=== PATIENT | female | born 1965 | race Caucasian/White ===

== ENCOUNTER → 2016-09-14 | Outpatient (CLI) | payer OTHER ==
--- NOTE | 2016-09-16 10:04 | MM ---
Reason for exam: follow-up at short interval from prior study. Last mammogram was performed 6 months ago. History: Family history of breast cancer in maternal cousin at age 51. Cyst aspiration of the right breast, 1985. Excisional biopsy of the right breast. Took hormonal contraceptives for 5 years. Physical Findings: Nurse Summary: 0.5 x 1cm nodule in the right breast at 12 o'clock (nurse ts). MG Diagnostic Mammo RT w CAD CC and MLO view(s) were taken of the right breast. Prior study comparison: March 05, 2016, right breast MG 3d work up w/cad RT. March 03, 2016, bilateral MG 3d screening mammo w/cad. March 01, 2015, bilateral MG 3d diag mammo w/cad TANIA. August 25, 2010, CAD bilateral diagnostic mammogram. The breast tissue is heterogeneously dense. This may lower the sensitivity of mammography. Palpable marker upper outer quadrant. No significant new findings when compared with previous films. These results were verbally communicated with the patient and result sheet given to the patient on 09/14/16. ASSESSMENT: Incomplete: need additional imaging evaluation, BI-RAD 0 RECOMMENDATION: Ultrasound of both breasts.
--- NOTE | 2016-09-16 10:12 | USB ---
Reason for exam: additional evaluation requested from abnormal screening. History: Family history of breast cancer in maternal cousin at age 51. Cyst aspiration of the right breast, 1985. Excisional biopsy of the right breast. Took hormonal contraceptives for 5 years. US Breast BILAT Left breast ultrasound includes all four quadrants, the retroareolar region and axilla. Finding demonstrates a 1.1 x 1.0 x 0.6cm oval, cystic lesion, larger of 2, at 12 o'clock, a 0.6 x 1.0 x 0.3cm oval, hypoechoic lesion at 1o'clock versus 6 x 7 x 3mm previously, likely mildly complicated cyst and a 0.6 x 0.5 x 0.3cm oval, cystic lesion at 10 o'clock versus 6 x 4 x 3mm, benign. Right breast ultrasound includes all four quadrants, the retroareolar region and axilla. Finding demonstrates a 0.7 x 0.8 x 0.5cm oval, hypoechoic lesion at 12 o'clock versus 5 x 6 x 4mm previously for which a 6 month follow up is recommended, a 0.7 x 0.5 x 0.4cm oval, hypoechoic lesion at 1 o'clock versus 5 x 4 x 2mm previously for which a 6 month follow up is recommended, a duct at 7 o'clock, a 0.3 x 0.2 x 0.2cm oval lesion too small to characterize at 9 o'clock, a 0.3 x 0.5 x 0.3 oval, hypoechoic lesion at 9 o'clock versus 3 x 5 x 6mm previously and a 0.7 x 0.7 x 0.6cm oval, cystic lesion at 11:30 BB, palpable, benign, suggesting benign complicated cyst. These results were verbally communicated with the patient and result sheet given to the patient on 09/14/16. ASSESSMENT: Probably benign, BI-RAD 3 RECOMMENDATION: Follow-up diagnostic mammogram of both breasts in 6 months. Back on schedule for February 2017. Ultrasound of the right breast in 6 months. (attention 12 o'clock and 1 o'clock) Manage on a clinical basis with regard to any suspicious palpable areas.
== END | disposition home or self-care (01) ==
LOC: RADMAMWWP 07:28
PROVIDERS: ATTEND Family Medicine
DX: R92.8 Other abnormal and inconclusive findings on diagnostic imaging of breast (principal)
CPT/HCPCS: 76641; G0206

== ENCOUNTER → 2018-06-20 | Outpatient (CLI) | payer OTHER ==
[2018-06-20 11:44] LABS: Basophils # (A) 0.1 k/uL (0-0.2); Basophils % (A) 1 %; Eosinophils # (A) 0.2 k/uL (0-0.7); Eosinophils % (A) 2 %; HGB 13.9 gm/dL (11.4-16.0); Lymphocytes # (A) 1.7 k/uL (1.0-4.8); Lymphocytes % (A) 14 %; MCHC 31.7 g/dL (31.0-37.0); MCV 91.6 fL (80.0-100.0); Mean Platelet Volume 8.1; Monocytes # (A) 0.5 k/uL (0-1.0); Monocytes % (A) 4 %; Neutrophils % (A) 79 %; Platelet Count 291 k/uL (150-450); RBC 4.81 m/uL (3.80-5.40); RDW 13.6 % (11.5-15.5); WBC 12.6 k/uL (3.8-10.6)
[2018-06-20 16:52] LABS: T4, Free (Free Thyroxine) 1.1 ng/dL (0.80-1.80)
[2018-06-20 17:36] LABS: Albumin 5.1 g/dL (3.80-4.90); Albumin/Globulin Ratio 2.32 (1.60-3.17); Anion Gap 10.4 mmol/L (4.00-12.00); Calcium 10.2 mg/dL (8.7-10.3); Carbon Dioxide 25.6 mmol/L (21.6-31.8); Globulin 2.2 g/dL (1.6-3.3); Potassium 4.2 mmol/L (3.5-5.5); Total Bilirubin 0.7 mg/dL (0.3-1.2); Total Protein 7.3 g/dL (6.2-8.2)
== END | disposition home or self-care (01) ==
LOC: LABWHC1 10:27
PROVIDERS: ATTEND Family Medicine
DX: E55.9 Vitamin D deficiency, unspecified (principal); E78.5 Hyperlipidemia, unspecified; R53.83 Other fatigue; Z13.220 Encounter for screening for lipoid disorders
CPT/HCPCS: 36415; 80053; 80061; 82306; 84439; 84443; 85025

== ENCOUNTER → 2019-03-03 | Outpatient (CLI) | payer OTHER ==
--- NOTE | 2019-03-03 13:46 | MM ---
Reason for exam: additional evaluation requested from prior study. Last mammogram was performed 2 years and 6 months ago. History: Family history of breast cancer in maternal cousin at age 51. Cyst aspiration of the right breast, 1985. Excisional biopsy of the right breast. Took hormonal contraceptives for 5 years. Physical Findings: Nurse did not find any significant physical abnormalities on exam. MG Diagnostic Mammo w CAD TANIA Bilateral CC and MLO view(s) were taken. Prior study comparison: September 14, 2016, right breast MG diagnostic mammo RT w CAD. March 05, 2016, right breast MG 3d work up w/cad RT. The breast tissue is extremely dense which could obscure a lesion on mammography. No significant new findings when compared with previous films. These results were verbally communicated with the patient and result sheet given to the patient on 03/03/19. ASSESSMENT: Benign, BI-RAD 2 RECOMMENDATION: Routine screening mammogram of both breasts in 1 year.
== END | disposition home or self-care (01) ==
LOC: RADMAMWWP 10:26
PROVIDERS: ATTEND Family Medicine
DX: R92.8 Other abnormal and inconclusive findings on diagnostic imaging of breast (principal)
CPT/HCPCS: 77066

== ENCOUNTER → 2019-08-28 | Outpatient (CLI) | payer OTHER ==
[2019-08-28 08:46] LABS: HCT 45.6 % (34.0-46.0); HGB 14.7 gm/dL (11.4-16.0); MCH 30.1 pg (25.0-35.0); MCHC 32.2 g/dL (31.0-37.0); MCV 93.6 fL (80.0-100.0); Mean Platelet Volume 8.6; Platelet Count 277 k/uL (150-450); RBC 4.87 m/uL (3.80-5.40); RDW 13.1 % (11.5-15.5); WBC 7.9 k/uL (3.8-10.6)
[2019-08-28 08:51] LABS: Appearance,Urine Clear (Clear); Bacteria,Urine Few /hpf; Bilirubin,Urine Negative (Negative); Blood,Urine Small (Negative); Color,Urine Light Yellow; Glucose,Urine (UA) Negative (Negative); Ketones,Urine Negative (Negative); Leukocyte Esterase,Urine Negative (Negative); Mucus,Urine Rare /hpf; Nitrite,Urine Negative (Negative); Protein,Urine Negative (Negative); RBC,Urine 2 /hpf (0-5); Specific Gravity,Urine 1.007 (1.001-1.035); Squamous Epithelial Cell,Urine 3 /hpf (0-4); Urobilinogen,Urine <2.0 mg/dL (<2.0); WBC,Urine <1 /hpf (0-5)
[2019-08-28 08:57] LABS: INR 0.9 (<1.2); Partial Thromboplastin Time 25.2 sec (22.0-30.0); Prothrombin Time 9.6 sec (9.0-12.0)
[2019-08-28 09:11] LABS: ALT 16 U/L (4-34); AST 23 U/L (14-36); African American GFR (CKD) >90 (>60 ml/min/1.73 sqM); Albumin 4.7 g/dL (3.5-5.0); Alkaline Phosphatase 108 U/L (38-126); Anion Gap 6 mmol/L; Blood Urea Nitrogen 11 mg/dL (7-17); Calcium 9.8 mg/dL (8.4-10.2); Carbon Dioxide 29 mmol/L (22-30); Chloride 102 mmol/L (98-107); Glucose 90 mg/dL (74-99); Non-African American GFR(CKD) >90 (>60 ml/min/1.73 sqM); Potassium 4.7 mmol/L (3.5-5.1); Sodium 137 mmol/L (137-145); Total Bilirubin 0.4 mg/dL (0.2-1.3); Total Protein 7.8 g/dL (6.3-8.2)
== END | disposition home or self-care (01) ==
LOC: LABPAT 07:50
PROVIDERS: ATTEND Orthopaedic Surgery
DX: Z01.818 Encounter for other preprocedural examination (principal); Z01.812 Encounter for preprocedural laboratory examination
CPT/HCPCS: 36415; 80053; 81001; 85027; 85610; 85730; 87070; 93005

== ENCOUNTER 2019-09-07 07:22 | Day surgery (SDC) | payer OTHER ==
[2019-09-05 14:43] VITALS: BMI 23.0
[~2019-09-07 07:22] MED LIST: ACETAMINOPHEN TAB 500 MG TAB PO ONE; DEXAMETHASONE SOD PHOSPHATE 10 MG/ML 1 ML VIAL IV ONE; GABAPENTIN 300 MG CAP PO ONE; HYDROmorphone 0.5 MG/0.5 ML SYRINGE IVP PRN; MELOXICAM 7.5 MG TAB PO ONE; ONDANSETRON 4 MG/2 ML VIAL IVP ONE; TRANEXAMIC ACID 1,000 MG in SODIUM CHLORIDE 0.9% 100 ML IVPB ONE
[2019-09-07] MEDS ORDERED: ONDANSETRON 4 MG/2 ML VIAL ONE (07:38)
[2019-09-07] MEDS ORDERED: ACETAMINOPHEN TAB 500 MG TAB ONE (07:39)
[2019-09-07] MEDS: LACTATED RINGERS 1,000 ML IV SCH (07:57)
[2019-09-07] MEDS ORDERED: LIDOCAINE 1% (10MG/ML) FOR IV START INTRADERMA ONE (07:57)
[2019-09-07] MEDS ORDERED: HYDROmorphone 0.5 MG/0.5 ML SYRINGE IVP PRN ×2 (09:04)
[2019-09-07] MEDS ORDERED: ONDANSETRON 4 MG/2 ML VIAL IVP PRN (09:04)
[2019-09-07] MEDS ORDERED: MAGNESIUM HYDROXIDE 2,400 MG/10 ML CUP PO PRN (09:04)
[2019-09-07] MEDS ORDERED: HYDROmorphone 1 MG/ML 1 ML SYRINGE IVP PRN (09:04)
[2019-09-07] MEDS ORDERED: NALOXONE 0.4 MG/ML 1 ML VIAL IV PRN (09:04)
[2019-09-07] MEDS ORDERED: DIAZEPAM 5 MG TAB PO PRN (09:04)
[2019-09-07] MEDS ORDERED: hydrOXYzine PAMOATE 25 MG CAP PO PRN (09:04)
[2019-09-07] MEDS ORDERED: HYDROcodone/APAP 5-325MG 1 EACH TAB PO PRN ×2 (09:04)
[2019-09-07] MEDS ORDERED: HEPARIN SODIUM,PORCINE 10,000 UNIT/ML 1 ML VIAL ONE (09:11)
[2019-09-07] MEDS ORDERED: SODIUM CHLORIDE 0.9% IRRIG 1,000 ML BTL IRRIGATION ONE (09:11)
[2019-09-07] MEDS ORDERED: fentaNYL (PF) 50 MCG/ML 2 ML AMP ONE (09:12)
[2019-09-07] MEDS ORDERED: MIDAZOLAM 2 MG/2 ML VIAL ONE (09:12)
[2019-09-07] MEDS ORDERED: LIDOCAINE 1% INJ 10MG/ML (20 ML MDV) ONE (09:12)
[2019-09-07] MEDS ORDERED: TRANEXAMIC ACID 1,000 MG/10 ML VIAL ONE (09:12)
[2019-09-07] MEDS ORDERED: SODIUM CHLORIDE 0.9% 100 ML BAG ONE (09:12)
[2019-09-07] MEDS ORDERED: PROPOFOL 10 MG/ML 20 ML VIAL IV ONE (09:12)
[2019-09-07] MEDS ORDERED: ceFAZolin 3,000 MG in SODIUM CHLORIDE 0.9% IRRIGATIO 3,000 ML IRRIGATION ONE (09:17)
[2019-09-07] MEDS: ROPIVACAINE 246.25 MG, EPINEPHrine 0.5 MG, KETOROLAC 30 MG, cloNIDine HCL/PF 80 MCG, WA... MISCELLANE ONE ×10 (09:56→10:37)
--- NOTE | 2019-09-07 11:03 | P.OP ---
Date of Procedure: 09/07/19 Preoperative Diagnosis: Severe osteoarthritis secondary to hip dysplasia right hip Postoperative Diagnosis: Severe osteoarthritis secondary to hip dysplasia of the right hip Procedure(s) Performed: Right total hip arthroplasty with a direct anterior approach Implants: Small and nephew Polarstem size 0 standard Small & Nephew R3, 3 hole acetabular shell, 48 mm Small & Nephew reflection 6.5 mm cancellus screw, 20 mm 2, 15 mm Small & Nephew R3, XLPE 20 acetabular liner Small & Nephew Oxinium femoral head 32 m, +8 All components were press-fit. The articulation is Oxinium on polyethylene. Anesthesia: spinal Surgeon: Ricardo Davis Cardiology Consultant #1: Adelaida Moss Pathology: other (Femoral head) Condition: stable Disposition: PACU Indications for Procedure: After failure of conservative treatment we discussed the surgical and nonsurgica l treatment options at length. Patient wishes to proceed with a total hip arthroplasty with a direct anterior approach. Complications specific to this procedure were discussed at length, including but not limited to infection, leg length discrepancy, dislocation, and nerve injury. Covid-19 was also discussed at length with the patient, and they are aware of the current policies and procedures. The patient was given the option of delaying surgery, but they elect to proceed knowing these risks. Patient is aware of all these complications and informed consent was obtained Operative Findings: The operative findings are consistent with severe osteoarthritis the right hip secondary to hip dysplasia Description of Procedure: Patient was seen and evaluated in the preoperative area, consent was reviewed, and the surgical site was marked with a skin marker. Patient was then brought to the operating room and given prophylactic antibiotics intravenously. 1 g of Tranexamic acid was also given. A spinal anesthetic was administered by the anesthesia department. The patient was then placed on the Carver table with the bony prominences well-padded. The hip area was then prepped and draped in usual sterile fashion. A universal timeout was then performed, which confirmed the patient's name, surgical site, ALLERGIES, and procedure being performed. Next the incision site was located at 1 cm distal and 1 cm lateral to the anterior superior iliac spine. The skin and subcutaneous tissues were sharply incised. Incision was carefully dissected down to the fascia overlying the tensor fascia thalia muscle. This fascia was then incised in line with the incision. Next, using blunt finger dissection, the tensor fascia thalia muscle was dissected off its investing fascia. The muscle was then carefully retracted laterally with a cobra retractor over the lateral neck of the femur. Next, the circumflex vessels were identified and cauterized using the AquaMantis device. The anterior hip capsule was then exposed. The capsule was then opened and an inverted T fashion. Cobra retractors were then placed intracapsularly. The proximal femur was then visualized. The femoral neck was then osteotomized appropriate level above the lesser trochanter. Small amount of traction was placed with the Carver table. A small wedge of bone was then removed from the remaining femoral head. Next, using a corkscrew femoral head was easily removed from the acetabulum. On gross visual inspection, the femoral head had complete loss of articular cartilage in multiple periarticular osteophytes. Attention was then turned to the acetabulum. the acetabulum was exposed and any remaining labrum was excised. Sequential reaming of the acetabulum was performed using fluoroscopic guidance. When the appropriate size was reached, a trial was then placed. The position and fit of the trial was checked with fluoroscopy. The trial was then removed. Then, using fluoroscopic guidance, the final implant was impacted at 20 of anteversion and 40 of abduction, and fully seated in the acetabulum. 3 screws were then placed in the acetabulum. Again fluoroscopy was used to check position of the screws. Next, the liner was then impacted, with a 20 elevated liner located in the anterior superior quadrant. Component locking was confirmed. Attention was then directed to the femur. With the aid of the Carver table, the femur was externally rotated to approximately 130, extended, and abducted under the opposite leg. A side hook was then placed under the proximal femur, and the side hook elevator was used to elevate the proximal femur. Retractors were then placed. A capsular release was performed, as well as a release of the conjoined tendon, which afforded excellent visualization of the proximal femur. Next, a box osteotome was used to lateralize the proximal femur. A merchandising representative was then used to locate the femoral canal. Sequential broaching was then performed with appropriate size which afforded excellent fixation in the proximal femur. A trial was then placed with appropriate head and neck, and the hip was gently re duced with the aid of the Carver table. Fluoroscopy was then used to check position of the components, as well as to ensure equal leg lengths. The hip was then gently dislocated and the trials were then removed. Final implants were then impacted and the hip was again reduced. Final fluoroscopic x-rays confirmed that the components were in anatomic position, as well as equal leg lengths. The hip was also taken through range of motion, and found to be stable. The hip was then copiously irrigated with antibiotic solution with pulsatile lavage. The hip was then irrigated with Irrisept solution. The soft tissues were then injected with a ropivacaine solution, which consisted of 246.25 mg of ropivacaine, 0.5 mg of epinephrine, 30 mg of Toradol, 80 g of clonidine, and 48.45 mL of sterile water, for a total of 100 mL of fluid injected. A second dose of 1 g of Tranexamic acid was also given. the fascia was then closed with 2-0 strata fix suture. The subcutaneous tissue was closed with 3-0 Vicryl. The subcuticular tissue was closed with 3-0 strata fix suture. The skin was then closed with Dermabond glue and a sterile silver dressing. The patient was then transferred to the recovery room in stable condition. The minister assistant LESIA Horn was required due to the complexity of surgery, and the need for skilled branch assistant for positioning, draping, exposure, retraction, and closure of the wound.
--- NOTE | 2019-09-07 11:11 | XR ---
Fluoroscopy INDICATION: Pain FINDINGS: Fluoroscopy time: 39 seconds. Images obtained: 2. IMPRESSIONS: 1. Documentation of fluoroscopy.
--- NOTE | 2019-09-07 11:49 | XR ---
EXAMINATION TYPE: XR Hip Limited RT DATE OF EXAM: 09/07/2019 COMPARISON: 02/23/2014 pelvis HISTORY: Right hip surgery TECHNIQUE: Single view right hip FINDINGS: Right hip prosthesis has been placed. Acetabular component is present. No acute fractures a re evident. Postsurgical changes are within the soft tissues. IMPRESSION: 1. No acute fractures post right hip replacement.
[2019-09-07] MEDS: SODIUM CHLORIDE 0.9% 1,000 ML IV SCH ×2 (14:53→17:22)
[2019-09-07] MEDS ORDERED: SENNOSIDES-DOCUSATE SODIUM 1 EACH TAB PO SCH (21:00)
[2019-09-07] MEDS: ASPIRIN 325 MG TAB PO SCH (21:36)
[2019-09-08] MEDS: LACTATED RINGERS 1,000 ML IV SCH (07:07)
[2019-09-08] MEDS ORDERED: Acetaminophen-Codeine 300-30mg TAB PO PRN ×2 (08:20)
[2019-09-08] MEDS: ASPIRIN 325 MG TAB PO SCH (08:34)
[2019-09-08 08:42] VITALS: BP 118/71; PULSE 80; RESP 17; TEMP 98.3
--- NOTE | 2019-09-08 08:57 | P.DS ---
Providers Expected date of discharge: 09/08/19 Attending physician: Ricardo Davis Consults: 09/07/19 09:04 Consult Physician Routine Consulting Provider: Chintan Clayton Consult Reason/Comments: medical management Do you want consulting provider notified?: Yes Primary care physician: Chintan Clayton - Discharge Diagnosis(es) (1) Osteoarthritis of right hip Current Visit: Yes Status: Acute (2) Status post total hip replacement, right Current Visit: Yes Status: Acute Hospital Course: This is a 53-year-old female with known history of degenerative arthritis of the right hip. The patient presents for evaluation. After discussion and consider ation patient elects to proceed with total hip arthroplasty. The patient is seen preoperatively by Dr. Davis and medically cleared for surgery by their primary care physician. Patient is admitted to [facility] on 09/07/2019 for total hip arthroplasty. The procedures performed without complication or sequelae. The patient is doing well postoperatively. Labs and vital signs are stable on day of discharge. On day of discharge patient's hip incision is healing well. There is minimal erythema. There is no drainage noted at this time. There is minimal soft tissue swelling to the hip and thigh. Patient has full foot and ankle motion without difficulty or pain. Calf is soft and nontender to palpation. Neurovascular status to the right lower extremity is intact. Patient is discharged home in good condition. Opioid start talking form is reviewed and signed at patient bedside. Please see med rec for accurate list of home medications. Plan - Discharge Summary Discharge Rx Participant: No New Discharge Prescriptions: New Aspirin 325 mg PO BID #60 tab Sennosides [Senokot] 2 tab PO DAILY PRN #60 tablet PRN Reason: Constipation Acetaminophen-Codeine 300-30mg [Tylenol #3] 1 - 2 tab PO Q6H PRN #56 tablet PRN Reason: Pain No Action Cyclobenzaprine [Flexeril] 10 mg PO HS Ibuprofen [Motrin] 800 mg PO Q8H PRN PRN Reason: Pain Ergocalciferol [Vitamin D2] 50,000 unit PO Q30D Discharge Medication List Cyclobenzaprine [Flexeril] 10 mg PO HS 09/05/19 [History] Ergocalciferol [Vitamin D2] 50,000 unit PO Q30D 09/05/19 [History] Ibuprofen [Motrin] 800 mg PO Q8H PRN 09/05/19 [History] Acetaminophen-Codeine 300-30mg [Tylenol #3] 1 - 2 tab PO Q6H PRN #56 tablet 09/08/19 [Rx] Aspirin 325 mg PO BID #60 tab 09/08/19 [Rx] Sennosides [Senokot] 2 tab PO DAILY PRN #60 tablet 09/08/19 [Rx] Follow up Appointment(s)/Referral(s): Ricardo Davis DO [Doctor of Osteopathic Medicine] - 2 Weeks Activity/Diet/Wound Care/Special Instructions: Weightbearing as tolerated with walker. Leave dressing intact. Dressing may be removed by home care nurse or by patient in 10 days. May shower with dressing on. Recommend use of compression stockings daily until follow up to help prevent swelling and blood clots. May remove at night before sleeping. Please follow-up with [facility] in 2 weeks and call with any questions or concerns, . Discharge Disposition: HOME WITH HOME HEALTH SERVICES
[2019-09-08] MEDS ORDERED: MELOXICAM 7.5 MG TAB PO SCH (09:00)
[2019-09-08 11:17] LABS: Basophils % (A) 0 %; Eosinophils % (A) 0 %; HCT 35.2 % (34.0-46.0); Lymphocytes # (A) 2.1 k/uL (1.0-4.8); Lymphocytes % (A) 13 %; MCH 29.5 pg (25.0-35.0); MCHC 31.8 g/dL (31.0-37.0); MCV 92.9 fL (80.0-100.0); Mean Platelet Volume 9.3; Monocytes # (A) 0.9 k/uL (0-1.0); Monocytes % (A) 6 %; Neutrophils # (A) 13.2 k/uL (1.3-7.7); Neutrophils % (A) 80 %; Platelet Count 254 k/uL (150-450); RBC 3.79 m/uL (3.80-5.40); RDW 13.1 % (11.5-15.5); WBC 16.5 k/uL (3.8-10.6)
[2019-09-08 11:40] LABS: HGB 11.2 gm/dL (11.4-16.0)
--- NOTE | 2019-09-08 12:41 | PN ---
PROGRESS NOTE DATE OF SERVICE: 09/08/2019 CHIEF COMPLAINT: Status post right MARC. HISTORY OF PRESENT ILLNESS: This is doing well. She has had no fever, chills, abdominal pain, shortness of breath, etc. She had nausea during the night due to her analgesics. She feels fine now. She will probably go home. PHYSICAL EXAMINATION: Vital signs are normal. She is afebrile. Chest is clear. Cardiac exam is normal. Abdomen is soft. IMPRESSION: 1. Status post right MARC. 2. Rheumatoid arthritis. PLAN: Probably home today and we will follow her up from the office. MMODL / IJN: [id number] /
--- NOTE | 2019-09-08 17:34 | CONS ---
CONSULTATION CHIEF COMPLAINT: Osteoarthritis of the right hip and rheumatoid arthritis. HISTORY OF PRESENT ILLNESS: This is the first admission in some time for this 53-year-old white female who has had severe rheumatoid arthritis with multiple deformities which has "burned out" several years ago. She has been putting up with severe right hip pain due to osteoarthritis and is in for an elective replacement. REVIEW OF SYSTEMS: She has had no headaches, change in vision or hearing, neurologic deficits, TIAs, CVAs, shortness of breath, cough, hemoptysis, pleurisy, hypertension, heart disease, murmurs, rheumatic fever, palpitations, syncope, orthopnea, PND, etc. She has had no significant abdominal problems, including ulcer disease, nausea, vomiting, hematemesis, melena, hematochezia, jaundice, hepatitis, cirrhosis, renal failure, hematuria, dysuria, frequency, urgency, incontinence, diabetes, etc. Past medical history, family history, and personal and social histories reveal that her only allergy was problems with cold shots. Medications currently include Flexeril 10 mg at bedtime p.r.n., vitamin D 50,000 units a month, Motrin 800 mg q.i.d. p.r.n. The remainder of her history is otherwise unremarkable. She used to smoke but has quit. She does not abuse alcohol. PHYSICAL EXAMINATION: Blood pressure is 112/70, pulse is 67 and regular, respirations 16, and she is afebrile. In general she appeared to be well developed, well nourished, in no acute distress. Skin color is normal. Skin is warm and dry. Lymph nodes are not enlarged. Head, ears, eyes, nose, mouth and throat were normal. Neck veins were not distended. Thyroid was not enlarged. Chest is clear. Cardiac exam is normal. No murmurs or extra sounds are heard. There are no rubs. The abdomen is soft, nontender without visceromegaly or masses. Bowel sounds are present. Extremities are normal except for deformities of the upper and lower extremities due to her rheumatoid disease. Neurologically she is intact. She is admitted to the hospital with the diagnoses: 1. Osteoarthritis of right hip. 2. Rheumatoid arthritis. RECOMMENDATIONS: None. She is a good surgical candidate at low risk. Thank you respectfully. MMODL / IJN: [id number] /
== END 2019-09-08 09:48 | disposition home health service (06) ==
LOC: OR 07:22 → EDSTATUS 08:45 → 4SSUR 11:09 → OR 09-08 09:48
PROVIDERS: ATTEND Orthopaedic Surgery
DX: M16.31 Unilateral osteoarthritis resulting from hip dysplasia, right hip (principal); M06.9 Rheumatoid arthritis, unspecified; Q65.89 Other specified congenital deformities of hip; E78.5 Hyperlipidemia, unspecified; Z87.891 Personal history of nicotine dependence; Z79.1 Long term (current) use of non-steroidal anti-inflammatories (NSAID); Z79.899 Other long term (current) drug therapy; Z96.642 Presence of left artificial hip joint; Z97.3 Presence of spectacles and contact lenses
CPT/HCPCS: 97116; 97161; 97165; 86891; 86900; 86901; 85025; 86850; 88300; 73501 ×2; 27130; C1776; J2250; J0171; J1644; J1100; J0690 ×3; J2405; J2001; J3010; J1885; J1170; J2795; J2704; J0735

== ENCOUNTER → 2020-05-07 | Outpatient (CLI) | payer OTHER ==
--- NOTE | 2020-05-09 14:25 | MM ---
Reason for exam: screening (asymptomatic). Last mammogram was performed 1 year and 2 months ago. History: Patient is postmenopausal. Family history of breast cancer in maternal cousin at age 51. Cyst aspiration of the right breast, 1985. Excisional biopsy of the right breast. Took hormonal contraceptives for 5 years. Physical Findings: A clinical breast exam by your physician is recommended on an annual basis and results should be correlated with mammographic findings. MG Screening Mammo w CAD Bilateral CC and MLO view(s) were taken. Prior study comparison: March 03, 2019, bilateral MG diagnostic mammo w CAD TANIA. September 14, 2016, right breast MG diagnostic mammo RT w CAD. The breast tissue is heterogeneously dense. This may lower the sensitivity of mammography. No significant changes when compared with prior studies. ASSESSMENT: Negative, BI-RAD 1 RECOMMENDATION: Routine screening mammogram of both breasts in 1 year. Patient should continue monthly self breast exams. A negative report should not preclude additional follow up of suspicious palpable abnormalities.
== END | disposition home or self-care (01) ==
LOC: RADMAMWWP 13:15
PROVIDERS: ATTEND Family Medicine
DX: Z12.31 Encounter for screening mammogram for malignant neoplasm of breast (principal)
CPT/HCPCS: 77067

== ENCOUNTER → 2021-01-21 | Outpatient (CLI) | payer OTHER ==
[2021-01-21 19:24] LABS: Basophils # (A) 0.07 X 10*3/uL (0.00-0.10); Basophils % (A) 0.6 %; Eosinophils # (A) 0.06 X 10*3/uL (0.04-0.35); Eosinophils % (A) 0.5 %; HCT 42.3 % (37.2-46.3); HGB 13.8 g/dL (12.0-15.0); Lymphocytes # (A) 2.06 X 10*3/uL (0.90-5.00); Lymphocytes % (A) 18.4 %; MCH 30.9 pg (27.0-32.0); MCHC 32.6 g/dL (32.0-37.0); MCV 94.6 fL (80.0-97.0); Mean Platelet Volume 11.9 fL (9.5-12.2); Monocytes % (A) 4.5 %; Neutrophils # (A) 8.49 X 10*3/uL (1.80-7.70); Neutrophils % (A) 75.6 %; Platelet Count 303 X 10*3/uL (140-440); RBC 4.47 X 10*6/uL (4.10-5.20); RDW 13.6 % (11.5-14.5); WBC 11.22 X 10*3/uL (4.50-10.00)
[2021-01-21 21:02] LABS: African American GFR (CKD) 118.9 (60.0-200.0); Anion Gap 16.2 mmol/L (4.00-12.00); BUN/Creat Ratio 16.17 Ratio (12.00-20.00); Blood Urea Nitrogen 9.7 mg/dL (9.0-27.0); Calcium 10.3 mg/dL (8.7-10.3); Carbon Dioxide 21.8 mmol/L (21.6-31.8); Chol/HDL Ratio 3.61 Ratio; Globulin 2.5 g/dL (1.6-3.3); HDL Cholesterol 69.5 mg/dL (40.00-60.00); LDL Cholesterol,Calculated 158.7 mg/dL (0.0-131.0); Non-African American GFR(CKD) 102.6 (60.0-200.0); T4, Free (Free Thyroxine) 1.43 ng/dL (0.800-1.800); Total Bilirubin 0.4 mg/dL (0.30-1.20); Total Protein 7.5 g/dL (6.2-8.2); VLDL Calculation 22.8 mg/dL (5.00-40.00)
== END | disposition home or self-care (01) ==
LOC: LABWHC1 13:20
PROVIDERS: ATTEND Family Medicine
DX: Z00.00 Encounter for general adult medical examination without abnormal findings (principal); Z13.220 Encounter for screening for lipoid disorders; E55.9 Vitamin D deficiency, unspecified; E78.5 Hyperlipidemia, unspecified; R53.83 Other fatigue
CPT/HCPCS: 36415; 80053; 80061; 82306; 84439; 84443; 85025

== ENCOUNTER 2022-04-07 14:49 | Observation (INO) | payer BC ==
[2022-04-07] MEDS ORDERED: MECLIZINE 12.5 MG TAB PO STA (15:21)
[2022-04-07] MEDS ORDERED: METOCLOPRAMIDE 5 MG/ML 2 ML VIAL IVP STA (15:21)
[2022-04-07] MEDS ORDERED: SODIUM CHLORIDE 0.9% 1,000 ML IV STA (15:21)
--- NOTE | 2022-04-07 15:26 | ED ---
General Adult HPI - General Chief complaint: Dizziness Stated complaint: vomiting Time Seen by Provider: 04/07/22 15:14 Source: patient, RN notes reviewed Mode of arrival: ambulatory Limitations: no limitations - History of Present Illness Initial comments: Patient is a pleasant 56-year-old female presenting to the emergency department with concerns with vertigo symptoms. Onset of symptoms was around 4 AM. Symptoms have been constant since that time. Patient feels like the room was spinning. Patient states symptoms worsen with upright position and head movement. Patient also has developed some mild pressure in her chest that remains stable and remains mild. No history of similar symptoms previously. No dyspnea. Patient does have nausea and vomiting that she attributes to the dizziness. No sweating. - Related Data Home Medications Medication Instructions Recorded Confirmed Ibuprofen [Motrin] 800 mg PO Q8H PRN 09/05/19 04/07/22 Allergies Allergy/AdvReac Type Severity Reaction Status Date / Time No Known Allergies Allergy Verified 04/07/22 16:05 Review of Systems ROS Statement: Those systems with pertinent positive or pertinent negative responses have been documented in the HPI. ROS Other: All systems not noted in ROS Statement are negative. Constitutional: Denies: fever Eyes: Denies: eye pain ENT: Denies: ear pain Respiratory: Denies: cough Cardiovascular: Reports: as per HPI, chest pain Endocrine: Denies: fatigue Gastrointestinal: Reports: nausea, vomiting. Denies: abdominal pain Genitourinary: Denies: urgency Musculoskeletal: Denies: back pain Neurological: Reports: vertigo. Denies: headache, weakness Past Medical History Past Medical History: Rheumatoid Arthritis (RA) Additional Past Medical History / Comment(s): 01/11/15 PT admitted to floor s/p total L hip arthroplasty. Other HX: RA diagnosed as a child- hand affected, RECENT TESTING DEMONSTRATES NO RHEUMATOID OR OSTEOARTHRITIS, kidney infection. History of Any Multi-Drug Resistant Organisms: None Reported Past Surgical History: Breast Surgery, Joint Replacement, Tubal Ligation Additional Past Surgical History / Comment(s): 01/11/15 Total L hip arthroplasty-anterior approach. Other SX: RIGHT BREAST BX-NEG Additional Past Anesthesia/Blood Transfusion Reaction / Comment(s): HAS NEVER LLAMAS D GENERAL ANETHESIA. Past Psychological History: No Psychological Hx Reported Past Alcohol Use History: None Reported Past Drug Use History: None Reported - Past Family History Mother Family Medical History: No Reported History Additional Family Medical History / Comment(s): Mother is healthy and 69yrs old. Father History Unknown: Yes Additional Family Medical History / Comment(s): Pt does not know father. General Exam Limitations: no limitations General appearance: alert, in no apparent distress Head exam: Present: atraumatic, normocephalic Eye exam: Present: normal appearance, PERRL, EOMI ENT exam: Present: normal oropharynx Neck exam: Present: normal inspection Respiratory exam: Present: normal lung sounds bilaterally. Absent: chest wall tenderness Cardiovascular Exam: Present: regular rate, normal rhythm Expanded Peripheral pulses: 2+: Radial (R), Radial (L), Dorsalis Pedis (R), Dorsalis Pedis (L) GI/Abdominal exam: Present: soft. Absent: tenderness Extremities exam: Present: normal inspection. Absent: pedal edema, calf tenderness Neurological exam: Present: alert, oriented X3, CN II-XII intact. Absent: motor sensory deficit Expanded Neurological exam: Present: protecting the airway Speech: Present: fluid speech Cranial nerves: EOM's Intact: Normal Motor strength exam: RUE: 5, LUE: 5, RLE: 5, LLE: 5 Eye Response: (4) open spontaneously Motor Response: (6) obeys commands Verbal Response: (5) oriented Psychiatric exam: Present: normal affect, normal mood Skin exam: Present: normal color Course Vital Signs 04/07/22 04/07/22 14:57 18:09 Temperature 99 F Pulse Rate 86 96 Respiratory 16 18 Rate Blood Pressure 137/82 146/83 O2 Sat by Pulse 100 99 Oximetry EKG Findings - EKG Results: EKG: interpreted by ERMD (Anterior Q waves with nonspecific ST-T. Borderline inferior ST depression.), sinus rhythm, normal axis Medical Decision Making - Medical Decision Making Was pt. sent in by a medical professional or institution (, PA, PRODUCT GRADER, urgent care, hospital, or shelter...) When possible be specific @ -No Did you speak to anyone other than the patient for history (EMS, parent, family, police, friend...)? What history was obtained from this source @ -No Did you review nursing and triage notes (agree or disagree)? Why? @ -I reviewed and agree with nursing and triage notes Were old charts reviewed (outside hosp., previous admission, EMS record, old EKG, old radiological studies, urgent care reports/EKG's, shelter records)? Report findings @ -No old charts were reviewed Differential Diagnosis (chest pain, altered mental status, abdominal pain women, abdominal pain men, vaginal bleeding, weakness, fever, dyspnea, syncope, headache, dizziness, GI bleed, back pain, seizure, CVA, palpatations, mental health)? @ -Differential Chest Pain: Stable Angina, Unstable Angina, STEMI, NSTEMI Aortic Dissection, Pneumothorax, Musculoskeletal, Esophageal Spasm GERD, Cholecystitis, Pancreatitis, Zoster, this is not meant to be an all-inclusive list. Differential Weakness: Hypoglycemia, shock, sepsis, hyponatremia, anemia, infection, NV, ETOH, adverse medicine reaction, overdose, stroke, this is not meant to be an all-inclusive list. EKG interpreted by me (3pts min.). @ -As above X-rays interpreted by me (1pt min.). @ -Chest x-ray shows no acute process CT interpreted by me (1pt min.). @ -Reports reviewed U/S interpreted by me (1pt. min.). @ -None done What testing was considered but not performed or refused? (CT, X-rays, U/S, labs)? Why? @ -None What meds were considered but not given or refused? Why? @ -None Did you discuss the management of the patient with other professionals (professionals i.e. , PA, PRODUCT GRADER, lab, RT, psych nurse, pediatric social worker, transfill technician, teacher, tactical deception plans officer, telephonic nurse case manager)? Give summary @ -Case was discussed with Dr. fragoso, who will admit covering Dr. Paulson. Was smoking cessation discussed for >3mins.? @ -No Was critical care preformed (if so, how long)? @ -No Were there social determinants of health that impacted care today? How? (Homelessness, low income, unemployed, alcoholism, drug addiction, transportation, low edu. Level, literacy, decrease access to med. care, halfway, rehab)? @ -No Was there de-escalation of care discussed even if they declined (Discuss DNR or withdrawal of care, Hospice)? DNR status @ -No What co-morbidities impacted this encounter? (DM, HTN, Smoking, COPD, CAD, Cancer, CVA, ARF, Chemo, Hep., AIDS, mental health diagnosis, sleep apnea, morbid obesity)? @ -None Was patient admitted / discharged? Hospital course, mention meds given and ro jena, prescriptions, significant lab abnormalities, going to OR and other pertinent info. @ -Patient reevaluated. Symptoms have improved however not resolved. Patient got very dizzy with going to the bathroom. Patient and family updated on results and plan. Patient will be admitted. Admission orders written. Undiagnosed new problem with uncertain prognosis? @ -No Drug Therapy requiring intensive monitoring for toxicity (Heparin, Nitro, Insulin, Cardizem)? @ -No Were any procedures done? @ -No Diagnosis/symptom? @ -Chest pain, vertigo Acute, or Chronic, or Acute on Chronic? @ -, Acute acute Uncomplicated (without systemic symptoms) or Complicated (systemic symptoms)? @ -Uncomplicated at this time Side effects of treatment? @ -No Exacerbation, Progression, or Severe Exacerbation? @ -No Poses a threat to life or bodily function? How? (Chest pain, USA, NV, pneumonia, PE, COPD, DKA, ARF, appy, cholecystitis, CVA, Diverticulitis, Homicidal, Suici mary ellen, threat to staff... and all critical care pts) @ -Potential threat of cardiac and other causes - Lab Data Result diagrams: 04/07/22 15:30 04/07/22 15:30 Lab Results 04/07/22 04/07/22 04/07/22 Range/Units 15:30 15:30 15:30 WBC 18.0 H (3.8-10.6) k/uL RBC 5.06 (3.80-5.40) m/uL Hgb 15.2 (11.4-16.0) gm/dL Hct 45.7 (34.0-46.0) % MCV 90.4 (80.0-100.0) fL MCH 30.1 (25.0-35.0) pg MCHC 33.3 (31.0-37.0) g/dL RDW 13.1 (11.5-15.5) % Plt Count 311 (150-450) k/uL MPV 9.4 Neutrophils % 90 % Lymphocytes % 7 % Monocytes % 2 % Eosinophils % 0 % Basophils % 0 % Neutrophils # 16.2 H (1.3-7.7) k/uL Lymphocytes # 1.3 (1.0-4.8) k/uL Monocytes # 0.4 (0-1.0) k/uL Eosinophils # 0.1 (0-0.7) k/uL Basophils # 0.1 (0-0.2) k/uL PT 10.1 (9.0-12.0) sec INR 0.9 (<1.2) APTT 22.0 (22.0-30.0) sec Sodium 140 (137-145) mmol/L Potassium 4.4 (3.5-5.1) mmol/L Chloride 103 (98-107) mmol/L Carbon Dioxide 20 L (22-30) mmol/L Anion Gap 17 mmol/L BUN 14 (7-17) mg/dL Creatinine 0.54 (0.52-1.04) mg/dL Est GFR (CKD-EPI)AfAm >90 (>60 ml/min/1.73 sqM) Est GFR (CKD-EPI)NonAf >90 (>60 ml/min/1.73 sqM) Glucose 158 H (74-99) mg/dL Calcium 10.7 H (8.4-10.2) mg/dL Magnesium 1.6 (1.6-2.3) mg/dL Total Bilirubin 1.0 (0.2-1.3) mg/dL AST 29 (14-36) U/L ALT 41 H (4-34) U/L Alkaline Phosphatase 157 H (38-126) U/L Troponin I (0.000-0.034) ng/mL Total Protein 8.7 H (6.3-8.2) g/dL Albumin 5.4 H (3.5-5.0) g/dL 04/07/22 Range/Units 15:30 WBC (3.8-10.6) k/uL RBC (3.80-5.40) m/uL Hgb (11.4-16.0) gm/dL Hct (34.0-46.0) % MCV (80.0-100.0) fL MCH (25.0-35.0) pg MCHC (31.0-37.0) g/dL RDW (11.5-15.5) % Plt Count (150-450) k/uL MPV Neutrophils % % Lymphocytes % % Monocytes % % Eosinophils % % Basophils % % Neutrophils # (1.3-7.7) k/uL Lymphocytes # (1.0-4.8) k/uL Monocytes # (0-1.0) k/uL Eosinophils # (0-0.7) k/uL Basophils # (0-0.2) k/uL PT (9.0-12.0) sec INR (<1.2) APTT (22.0-30.0) sec Sodium (137-145) mmol/L Potassium (3.5-5.1) mmol/L Chloride (98-107) mmol/L Carbon Dioxide (22-30) mmol/L Anion Gap mmol/L BUN (7-17) mg/dL Creatinine (0.52-1.04) mg/dL Est GFR (CKD-EPI)AfAm (>60 ml/min/1.73 sqM) Est GFR (CKD-EPI)NonAf (>60 ml/min/1.73 sqM) Glucose (74-99) mg/dL Calcium (8.4-10.2) mg/dL Magnesium (1.6-2.3) mg/dL Total Bilirubin (0.2-1.3) mg/dL AST (14-36) U/L ALT (4-34) U/L Alkaline Phosphatase (38-126) U/L Troponin I <0.012 (0.000-0.034) ng/mL Total Protein (6.3-8.2) g/dL Albumin (3.5-5.0) g/dL Disposition Clinical Impression: Chest pain, Vertigo Disposition: ADMITTED IP TO THIS HOSP Is patient prescribed a controlled substance at d/c from ED?: No Referrals: Chintan Clayton MD [Primary Care Provider] - 1-2 days Time of Disposition: 19:49
[2022-04-07 15:52] LABS: AST 29 U/L (14-36); African American GFR (CKD) >90 (>60 ml/min/1.73 sqM); Albumin 5.4 g/dL (3.5-5.0); Alkaline Phosphatase 157 U/L (38-126); Anion Gap 17 mmol/L; Blood Urea Nitrogen 14 mg/dL (7-17); Calcium 10.7 mg/dL (8.4-10.2); Carbon Dioxide 20 mmol/L (22-30); Chloride 103 mmol/L (98-107); Glucose 158 mg/dL (74-99); Magnesium 1.6 mg/dL (1.6-2.3); Non-African American GFR(CKD) >90 (>60 ml/min/1.73 sqM); Potassium 4.4 mmol/L (3.5-5.1); Sodium 140 mmol/L (137-145); Total Protein 8.7 g/dL (6.3-8.2)
[2022-04-07 15:57] LABS: Basophils # (A) 0.1 k/uL (0-0.2); Basophils % (A) 0 %; Eosinophils # (A) 0.1 k/uL (0-0.7); Eosinophils % (A) 0 %; HCT 45.7 % (34.0-46.0); HGB 15.2 gm/dL (11.4-16.0); Lymphocytes # (A) 1.3 k/uL (1.0-4.8); Lymphocytes % (A) 7 %; MCH 30.1 pg (25.0-35.0); MCHC 33.3 g/dL (31.0-37.0); MCV 90.4 fL (80.0-100.0); Mean Platelet Volume 9.4; Monocytes # (A) 0.4 k/uL (0-1.0); Monocytes % (A) 2 %; Neutrophils # (A) 16.2 k/uL (1.3-7.7); Neutrophils % (A) 90 %; Platelet Count 311 k/uL (150-450); RBC 5.06 m/uL (3.80-5.40); RDW 13.1 % (11.5-15.5)
[2022-04-07 16:08] LABS: ALT 41 U/L (4-34)
[2022-04-07 16:29] LABS: INR 0.9 (<1.2); Prothrombin Time 10.1 sec (9.0-12.0)
--- NOTE | 2022-04-07 16:32 | XR ---
EXAMINATION TYPE: XR chest 2V DATE OF EXAM: 04/07/2022 COMPARISON: NONE HISTORY: Shortness of breath TECHNIQUE: Frontal and lateral views of the chest are obtained. FINDINGS: Scattered senescent parenchymal changes noted. Hyperinflation compatible with COPD. No evidence for infiltrate. No evidence for atelectasis. Heart size is stable. Mediastinal structures are stable and grossly unremarkable. No evidence for hilar prominence. Degenerative changes dorsal spine. IMPRESSION: 1. No evidence for acute pulmonary disease.
--- NOTE | 2022-04-07 18:00 | CT ---
EXAMINATION TYPE: CT brain wo con CT DLP: 293884.9 mGycm, Automated exposure control for dose reduction was used. DATE OF EXAM: 04/07/2022 5:31 PM COMPARISON: CT angiogram head neck same day. CLINICAL INDICATION:Female, 56 years old with history of vertigo, dizziness TECHNIQUE: Brain: Axial CT images of the brain were obtained with coronal and sagittal reformats created and rev iewed. Contrast used: None. Oral contrast used: None. FINDINGS: Brain: Extra-axial spaces: No abnormal extra-axial fluid collections. Ventricular system: Within normal limits Cerebral parenchyma: No acute intraparenchymal hemorrhage or mass effect. The ernst-white junction is well differentiated. Cerebellum: Unremarkable. Mass effect: No evidence of midline shift. Intracranial vasculature: unremarkable Soft tissues: Normal. Calvarium/osseous structures: No depressed skull fracture. Paranasal sinuses and mastoid air cells: Mild scattered paranasal sinus disease. Visualized orbits: Orbital contents are intact. IMPRESSION: No acute intracranial process.
--- NOTE | 2022-04-07 18:00 | CT ---
EXAMINATION TYPE: CT angio head neck CT DLP: combined DLP: 1604.9 mGycm, Automated exposure control for dose reduction was used. DATE OF EXAM: 04/07/2022 5:33 PM COMPARISON: CT Head same day CLINICAL INDICATION:Female, 56 years old with history of vertigo; , dizziness TECHNIQUE: Axially acquired helical CT angiogram of the head and neck was obtained with contrast. Axi al images are supplemented with 3D reconstructions [facility] NASCET criteria used. Contrast used:65 mL of Isovue 370 with IV Contrast, Oral contrast used: None. FINDINGS: CTA HEAD: No evidence of acute intracranial hemorrhage, mass effect, or midline shift. The ventricles, sulci, a nd cisterns are unremarkable. The visualized portions of the internal carotid arteries, middle cerebral arteries, anterior cerebral arteries, and posterior cerebral arteries are patent. The basilar and vertebral arteries are patent. Dominant right transverse sinus and atrophic left. Sinuses appear patent. Thrombus. CTA NECK: Right Carotid System: The common carotid artery and external carotid artery are patent. The carotid bifurcation demonstrate s no evidence of hemodynamically significant stenosis. The remaining portions of the internal carotid artery demonstrate normal size without significant narrowing. Left Carotid System: The common carotid artery and external carotid artery are patent. The carotid bifurcation demonstrate s no evidence of hemodynamically significant stenosis. The remaining portions of the internal carotid artery demonstrate normal size without significant narrowing. Vertebral arteries are patent without evidence hemodynamically significant stenosis. There is a three-vessel aortic arch. The origins of the great vessels are patent. No evidence of hemo dynamically significant stenosis. Left thyroid nodule measuring up to 12 mm. IMPRESSION: 1. No evidence of dissection of the cervical internal carotid arteries or vertebral arteries or any e vidence of significant stenosis at the carotid bifurcations. 2. No evidence of intracranial high-grade stenosis or intracranial aneurysm. 3. Left thyroid nodule which could be further evaluated by ultrasound as clinically desired.
[2022-04-07] MEDS ORDERED: SCOPOLAMINE 1 MG/72 HR PATCH TRANSDERM STA (19:45)
[2022-04-07] MEDS ORDERED: NITROGLYCERIN SL TABS 0.4 MG TAB SUBLINGUAL PRN (19:49)
[2022-04-07] MEDS ORDERED: ASPIRIN 81 MG PO STA (19:49)
[2022-04-08] MEDS ORDERED: ASPIRIN 325 MG TAB PO SCH (09:00)
--- NOTE | 2022-04-08 10:01 | P.HPIM ---
History of Present Illness This is a pleasant 56 years old female with past medical history of Rheumatoid Arthritis , s/p total L hip arthroplasty. Patient presents because she felt the room spinning 4 AM when she woke up yesterday associated with multiple vomiting episodes and difficulty eating or drinking because of this, currently she feels better and stating that her dizziness and vertigo resolved, she does not have the vomiting anymore. She then to scopolamine patch she had an emergency room helped her Also she got from pressure on her chest yesterday about 4/10 was across the front of her chest, nonradiating, nonspecific and today is: As 0/10 She denies any other complaints, no headache, no dizziness, no weakness or numbness. No dyspnea or coughing. No abdominal pain. She complained from constipation. No urinary complaints leg dysuria or urgency She denies smoking alcohol or illicit drugs I told the patient about her left thyroid nodule and the need for outpatient follow-up on both patient and understand and agree with the plan Vitas looks stable, blood pressure is slightly on the high side Leukocytosis of 18.0 Patient Has Chronic Mild Leukocytosis in the Range of 10- 12,000 Rest of CBC Is Unremarkable. INR Is Normal. Creatinine and Electrolytes Normal. Glucose Elevated 158, Calcium 10.7, Liver Enzymes Not Significantly Elevated with AST Normal at 29 and ALT Slightly High at 41, Bilirubin Normal 1.0. CT of the Brain: No Acute Process CTA of the head and neck: No evidence of dissection or cyst stenosis. Left thy roid nodule requiring ultrasound Chest x-ray: No acute process. EKG showed normal sinus rhythm at [address]-T changes In the emergency room patient started on aspirin and normal saline at 75 mL/h Past Medical History Past Medical History: Rheumatoid Arthritis (RA) Additional Past Medical History / Comment(s): 01/11/15 PT admitted to floor s/p total L hip arthroplasty. Other HX: RA diagnosed as a child- hand affected, RECENT TESTING DEMONSTRATES NO RHEUMATOID OR OSTEOARTHRITIS, kidney infection. History of Any Multi-Drug Resistant Organisms: None Reported Past Surgical History: Breast Surgery, Joint Replacement, Tubal Ligation Additional Past Surgical History / Comment(s): 01/11/15 Total L hip arthroplasty-anterior approach. Other SX: RIGHT BREAST BX-NEG Additional Past Anesthesia/Blood Transfusion Reaction / Comment(s): HAS NEVER HAD GENERAL ANETHESIA. Past Psychological History: No Psychological Hx Reported Additional Psychological History / Comment(s): Pt resides with her spouse. She is independent. She drives. She has a walker for post op use. Smoking Status: Never smoker Past Alcohol Use History: None Reported Additional Past Alcohol Use History / Comment(s): Pt quit smoking in 2011 Past Drug Use History: None Reported - Past Family History Mother Family Medical History: No Reported History Additional Family Medical History / Comment(s): Mother is healthy and 69yrs old. Father History Unknown: Yes Additional Family Medical History / Comment(s): Pt does not know father. Medications and Allergies Home Medications Medication Instructions Recorded Confirmed Type Ibuprofen [Motrin] 800 mg PO Q8H PRN 09/05/19 04/07/22 History Allergies Allergy/AdvReac Type Severity Reaction Status Date / Time No Known Allergies Allergy Verified 04/07/22 16:05 Physical Exam Vitals: Vital Signs Temp Pulse Pulse Resp BP BP Pulse Ox 04/08/22 07:10 98.3 F 85 16 120/68 94 L 04/08/22 02:44 98.6 F 80 16 114/56 96 04/08/22 01:34 87 18 04/07/22 22:47 97.8 F 87 16 135/72 97 04/07/22 20:14 80 12 128/67 96 04/07/22 18:09 96 18 146/83 99 04/07/22 14:57 99 F 86 16 137/82 100 Intake and Output 04/07/22 04/08/22 04/08/22 22:59 06:59 14:59 Intake Total 540 1000 Balance 540 1000 Intake: Intake, IV Titration 1000 Amount Sodium Chloride 0.9% 1, 1000 000 ml @ 75 mls/hr IV . [id number] STA Rx#:[id number] Oral 540 Other: Voiding Method Toilet Weight 61.235 kg Results CBC & Chem 7: 04/07/22 15:30 04/07/22 15:30 Labs: Abnormal Lab Results - Last 24 Hours (Table) 04/07/22 04/07/22 Range/Units 15:30 15:30 WBC 18.0 H (3.8-10.6) k/uL Neutrophils # 16.2 H (1.3-7.7) k/uL Carbon Dioxide 20 L (22-30) mmol/L Glucose 158 H (74-99) mg/dL Calcium 10.7 H (8.4-10.2) mg/dL ALT 41 H (4-34) U/L Alkaline Phosphatase 157 H (38-126) U/L Total Protein 8.7 H (6.3-8.2) g/dL Albumin 5.4 H (3.5-5.0) g/dL Assessment and Plan Assessment: Chest pain, rule out cardiac causes, improved Vertigo, improved Left thyroid nodule History of rheumatoid arthritis History of osteoarthritis status post left hip arthroplasty Plan: Continue with gentle hydration Check thyroid function test Continue with aspirin Check echocardiogram Cardiology consult Neurology consult Labs and medication were reviewed.. Continue same treatment. Continue with symptomatic treatment. Resume home medication. Monitor lytes and vitals. DVT and GI prophylaxis. Further recommendations as per clinical course of the patient DVT prophylaxis: Subcutaneous heparin GI Prophylaxis: Pepcid PT/OT: Pending Prognosis is guarded
--- NOTE | 2022-04-08 10:34 | P.CRDCN ---
History of Present Illness Consult date: 04/08/22 Consult reason: chest pain History of present illness: History of present illness: This is a 56-year-old female patient with no previous cardiac history and does not follow with a enterostomal nurse. She has a past medical history significant for rheumatoid arthritis Patient has history of vertigo that started at 4 AM yesterday that was constant and then developed mild pressure in her chest. She also complained of some heartburn as well. She denies any fever or chills. No cough or sputum production. No nausea or vomiting. Patient's chest pain and vertigo are both relieved at this point. Patient thinks the Valium helped her chest pain. In the emergency center she also received Antivert, Reglan, scopolamine and IV fluids. EKG normal sinus rhythm with no acute ST changes WBC 18, troponin negative 3, alkaline phosphatase 157 Chest x-ray revealed no acute cardio pulmonary process CT of the brain was negative. CTA of the head and neck showed no acute findings. Review Of Systems: At the time of my evaluation: Constitutional: No fever, no chills. No weakness, fatigue or lethargy. EENT: No headache. No dizziness. Lungs: No shortness of breath, cough, no sputum production. No wheezing. Cardiovascular: No chest pain, no lower extremity edema. No palpitations. No paroxysmal nocturnal dyspnea. No orthopnea. No lightheadedness or dizziness. No syncopal episodes. Abdominal: No abdominal pain. No nausea, vomiting. No diarrhea. No constipation. No bloody or tarry stools. Genitourinary: No dysuria.. No urinary retention. Musculoskeletal: No myalgias. No muscle weakness, no frequent falls. No back pain. No neck pain. Integumentary: No wounds. No rash. No unusual bruising. Neurologic: No aphasia. No facial droop. No change in mentation. No head injury. No headache. Psychiatric: No depression. No anxiety. Endocrine: No abnormal blood sugars. Physical examination: Gen: This is a 56-year-old female. She is resting in bed appears to be comfortable and in no acute distress. VS: reviewed HEENT: Head is atraumatic, normocephalic. Pupils equal, round. Sclerae is anicteric. NECK: Supple. No JVD. No lymphadenopathy. No thyromegaly. LUNGS: Clear to auscultation. No wheezes or rhonchi. No intercostal retractions. HEART: Regular rate and rhythm. No murmur. ABDOMEN: Soft. Bowel sounds are present. No masses. No tenderness. EXTREMITIES: No pedal edema. No calf tenderness. NEUROLOGICAL: Patient is awake, alert and oriented x3. Cranial nerves 2 through 12 are grossly intact. Assessment: Atypical chest pain, acute coronary syndrome ruled out Vertigo Plan: Obtain 2-D echocardiogram and Doppler study to assess cardiac structure and function No plan for further cardiac workup while in the hospital. If echocardiogram is within normal limits, patient can be discharged home in follow-up in the office for outpatient stress testing. Thank you kindly for this consultation. Nurse practitioner note has been reviewed, I agree with documented findings and plan of care. Patient was seen and examined. Past Medical History Past Medical History: Rheumatoid Arthritis (RA) Additional Past Medical History / Comment(s): 01/11/15 PT admitted to floor s/p total L hip arthroplasty. Other HX: RA diagnosed as a child- hand affected, RECENT TESTING DEMONSTRATES NO RHEUMATOID OR OSTEOARTHRITIS, kidney infection. History of Any Multi-Drug Resistant Organisms: None Reported Past Surgical History: Breast Surgery, Joint Replacement, Tubal Ligation Additional Past Surgical History / Comment(s): 01/11/15 Total L hip arthroplasty-anterior approach. Other SX: RIGHT BREAST BX-NEG Additional Past Anesthesia/Blood Transfusion Reaction / Comment(s): HAS NEVER HAD GENERAL ANETHESIA. Past Psychological History: No Psychological Hx Reported Additional Psychological History / Comment(s): Pt resides with her spouse. She is independent. She drives. She has a walker for post op use. Smoking Status: Never smoker Past Alcohol Use History: None Reported Additional Past Alcohol Use History / Comment(s): Pt quit smoking in 2011 Past Drug Use History: None Reported - Past Family History Mother Family Medical History: No Reported History Additional Family Medical History / Comment(s): Mother is healthy and 69yrs old. Father History Unknown: Yes Additional Family Medical History / Comment(s): Pt does not know father. Medications and Allergies Home Medications Medication Instructions Recorded Confirmed Type Ibuprofen [Motrin] 800 mg PO Q8H PRN 09/05/19 04/07/22 History Allergies Allergy/AdvReac Type Severity Reaction Status Date / Time No Known Allergies Allergy Verified 04/07/22 16:05 Physical Exam Vitals: Vital Signs Temp Pulse Pulse Resp BP BP Pulse Ox 04/08/22 07:10 98.3 F 85 16 120/68 94 L 04/08/22 02:44 98.6 F 80 16 114/56 96 04/08/22 01:34 87 18 04/07/22 22:47 97.8 F 87 16 135/72 97 04/07/22 20:14 80 12 128/67 96 04/07/22 18:09 96 18 146/83 99 04/07/22 14:57 99 F 86 16 137/82 100 Intake and Output 04/07/22 04/08/22 04/08/22 22:59 06:59 14:59 Intake Total 540 1000 Balance 540 1000 Intake: Intake, IV Titration 1000 Amount Sodium Chloride 0.9% 1, 1000 000 ml @ 75 mls/hr IV . [id number] STA Rx#:[id number] Oral 540 Other: Voiding Method Toilet Weight 61.235 kg Results 04/07/22 15:30 04/07/22 15:30 Cardiac Enzymes 04/07/22 04/07/22 04/07/22 Range/Units 15:30 15:30 20:01 AST 29 (14-36) U/L Troponin I <0.012 <0.012 (0.000-0.034) ng/mL 04/07/22 Range/Units 22:23 AST (14-36) U/L Troponin I <0.012 (0.000-0.034) ng/mL Coagulation 04/07/22 Range/Units 15:30 PT 10.1 (9.0-12.0) sec APTT 22.0 (22.0-30.0) sec CBC 04/07/22 Range/Units 15:30 WBC 18.0 H (3.8-10.6) k/uL RBC 5.06 (3.80-5.40) m/uL Hgb 15.2 (11.4-16.0) gm/dL Hct 45.7 (34.0-46.0) % Plt Count 311 (150-450) k/uL Comprehensive Metabolic Panel 04/07/22 Range/Units 15:30 Sodium 140 (137-145) mmol/L Potassium 4.4 (3.5-5.1) mmol/L Chloride 103 (98-107) mmol/L Carbon Dioxide 20 L (22-30) mmol/L BUN 14 (7-17) mg/dL Creatinine 0.54 (0.52-1.04) mg/dL Glucose 158 H (74-99) mg/dL Calcium 10.7 H (8.4-10.2) mg/dL AST 29 (14-36) U/L ALT 41 H (4-34) U/L Alkaline Phosphatase 157 H (38-126) U/L Total Protein 8.7 H (6.3-8.2) g/dL Albumin 5.4 H (3.5-5.0) g/dL Current Medications Generic Name Dose Route Start Last Admin Trade Name Freq PRN Reason Stop Dose Admin Aspirin 325 mg 04/08/22 09:00 Aspirin 325 Mg Tab PO DAILY JOSE Nitroglycerin 0.4 mg 04/07/22 19:49 Nitroglycerin Sl Tabs 0.4 Mg Tab SUBLINGUAL Q5M PRN Chest Pain Sodium Chloride 10 ml 04/07/22 21:00 04/07/22 22:19 Sodium Chloride 0.9% Flush 10 Ml Syringe IV 10 ml BID JOSE Administration Intake and Output 04/07/22 04/08/22 04/08/22 22:59 06:59 14:59 Intake Total 540 1000 Balance 540 1000 Intake: Intake, IV Titration 1000 Amount Sodium Chloride 0.9% 1, 1000 000 ml @ 75 mls/hr IV . [id number] STA Rx#:[id number] Oral 540 Other: Voiding Method Toilet Weight 61.235 kg 04/07/22 15:30 04/07/22 15:30
[2022-04-08 11:13] LABS: African American GFR (CKD) 112.3 (60.0-200.0); BUN/Creat Ratio 18.14 Ratio (12.00-20.00); Blood Urea Nitrogen 12.7 mg/dL (9.0-27.0); Calcium 10.6 mg/dL (8.7-10.3); Carbon Dioxide 23.3 mmol/L (20.0-27.5); Chloride 102 mmol/L (96-109); Glucose 79 mg/dL (70-110); LDL Cholesterol,Calculated 206.3 mg/dL (0.0-131.0); Non-African American GFR(CKD) 96.9 (60.0-200.0); Potassium 3.5 mmol/L (3.5-5.5); Sodium 141 mmol/L (135-145); VLDL Calculation 15.86 mg/dL (5.00-40.00)
--- NOTE | 2022-04-08 13:29 | P.CNNES ---
History of Present Illness Consult date: 04/08/22 Requesting physician: Chace Luo Reason for Consult: Vertigo History of Present Illness: Patient is a 56-year-old female with history of rheumatoid arthritis came to the hospital yesterday at 2:49 PM for evaluation of vertigo. Patient states that on Wednesday, 2 days ago, she went to sleep at 8:30 PM and she was fine. Yesterday on Wednesday morning she woke up at 4 AM, did not feel right, felt like falling down, couldn't get ice to focus. Her eyes started spinning. She started having vertigo, and then vomiting. It lasted for about 8 hours. Patient states that she vomited every time that she lifted her head up, and she would feel sick and puke. Later she noticed her hands some follow-up, chest felt tight at around 2 PM. She therefore decided to come to the ER. Patient denies any focal neurological symptoms like slurred speech, facial droop, double vision, focal numbness tingling or weakness. No previous history of CVA. Patient admits to having sinus problems since February 2022 while she was in [place], and she caught bad cold. She improved, but recently she felt as if the cold was coming back and she took Benadryl. Vital signs on arrival blood pressure 137/82, pulse rate 86 and temperature 99.0. Blood test shows WBC 18.0 hemoglobin is normal, PT/PTT normal, Chem-7 normal, AST is normal, ALT borderline 41. Troponin negative. B12 460, folate 7.9, TSH is normal. EKG shows normal sinus rhythm. Chest x-ray showed no acute cardiopulmonary disease. CT head was reported as normal. On my review, there is evidence of an old lacune or prominent perivascular space left basal ganglia. Also evidence of acute right sphenoid sinusitis. This morning when she woke up, the dizziness went away. She has gone to the bathroom and felt stable. Patient has history of rheumatoid arthritis since she was 5 years old. She has history of bilateral hip prosthesis. Currently not on any medication for rheumatoid arthritis only Motrin as needed. She has smoked half pack per day for 30 years, quit 15 years ago. Denies any alcohol use. Review of Systems Constitutional: Denies chills, Denies fever, Denies sweats Eyes: denies blurred vision, denies pain Ears: deny: ear discharge, earache Ears, nose, mouth and throat: Reports nasal congestion, Denies headache, Denies sore throat, Denies voice changes Cardiovascular: Reports chest pain, Denies shortness of breath Respiratory: Denies cough, Denies hemoptysis Gastrointestinal: Reports nausea, Reports vomiting, Denies abdominal pain, Denies diarrhea Genitourinary: Denies dysuria, Denies hematuria Integumentary: Denies pruritus, Denies rash Neurological: Reports as per HPI Psychiatric: Denies anxiety, Denies depression Endocrine: Denies fatigue, Denies weight change Hematologic/Lymphatic: Denies easy bruising Past Medical History Past Medical History: Rheumatoid Arthritis (RA) Additional Past Medical History / Comment(s): 01/11/15 PT admitted to floor s/p total L hip arthroplasty. Other HX: RA diagnosed as a child- hand affected, RECENT TESTING DEMONSTRATES NO RHEUMATOID OR OSTEOARTHRITIS, kidney infection. History of Any Multi-Drug Resistant Organisms: None Reported Past Surgical History: Breast Surgery, Joint Replacement, Tubal Ligation Additional Past Surgical History / Comment(s): 01/11/15 Total L hip arthroplasty-anterior approach. Other SX: RIGHT BREAST BX-NEG Additional Past Anesthesia/Blood Transfusion Reaction / Comment(s): HAS NEVER HAD GENERAL ANETHESIA. Past Psychological History: No Psychological Hx Reported Additional Psychological History / Comment(s): Pt resides with her spouse. She is independent. She drives. She has a walker for post op use. Smoking Status: Former smoker Past Alcohol Use History: None Reported Additional Past Alcohol Use History / Comment(s): Pt quit smoking in 2011 Past Drug Use History: None Reported - Past Family History Mother Family Medical History: No Reported History Additional Family Medical History / Comment(s): Mother is healthy and 69yrs old. Father History Unknown: Yes Additional Family Medical History / Comment(s): Pt does not know father. Medications and Allergies Home Medications Medication Instructions Recorded Confirmed Type Ibuprofen [Motrin] 800 mg PO Q8H PRN 09/05/19 04/07/22 History Allergies Allergy/AdvReac Type Severity Reaction Status Date / Time No Known Allergies Allergy Verified 04/07/22 16:05 Physical Examination - Vital Signs Vital Signs: Vital Signs Temp Pulse Pulse Resp BP BP Pulse Ox 04/08/22 09:37 94 L 04/08/22 07:10 98.3 F 85 16 120/68 94 L 04/08/22 02:44 98.6 F 80 16 114/56 96 04/08/22 01:34 87 18 04/07/22 22:47 97.8 F 87 16 135/72 97 04/07/22 20:14 80 12 128/67 96 04/07/22 18:09 96 18 146/83 99 04/07/22 14:57 99 F 86 16 137/82 100 FiO2 04/08/22 09:37 21 04/08/22 07:10 04/08/22 02:44 04/08/22 01:34 04/07/22 22:47 04/07/22 20:14 04/07/22 18:09 04/07/22 14:57 Intake and Output 04/07/22 04/08/22 04/08/22 22:59 06:59 14:59 Intake Total 540 1000 Balance 540 1000 Intake: Intake, IV Titration 1000 Amount Sodium Chloride 0.9% 1, 1000 000 ml @ 75 mls/hr IV . [id number] STA Rx#:[id number] Oral 540 Other: Voiding Method Toilet Weight 61.235 kg Patient is a middle aged female, appears slightly older than her stated age. Patient is somewhat petite. Patient is alert awake oriented to time place and person. Speech and language functions are normal. Patient can name and repeat very well. No aphasia or dysarthria. Attention, concentration and fund of knowledge is adequate. On cranial nerve examination, pupils are equal, round and reacting to light, visual shetty are full on confrontation, with no neglect on double simultaneous stimulation. Extraocular muscles are intact with no nystagmus. Face is symmetric, tongue protrudes to the midline. Palatal elevation and sensation normal, hearing and shoulder shrug normal, facial sensation normal. On muscle strength testing, there is no pronator drift and the strength is normal in arms and legs distally and proximally. Deep tendon reflexes are symmetric 2 at the biceps, 2 brachioradialis, 2 at the knees, 1+ ankles and plantars are downgoing bilaterally. Sensory to touch is equal with no neglect on double simultaneous stimulation. Cerebellar function showed no ataxia for [id number] testing. No dysdiadochokinesia. No ataxia for [id number] testing on either side. Tone and bulk of muscles normal. Gait deferred.. On general examination, there is no carotid bruit or murmur, S1-S2 audible. Chest is clear on consultation. Abdomen is soft nontender. No organomegaly, bowel sounds present. Peripheral pulses are present. No edema. Patient has significant arthritis noticed in the hands and feet. Results - Laboratory Findings CBC and BMP: 04/07/22 15:30 04/08/22 05:51 Abnormal Lab Findings: Abnormal Labs 04/07/22 04/07/22 04/08/22 15:30 15:30 05:51 WBC 18.0 H Neutrophils # 16.2 H Carbon Dioxide 20 L Glucose 158 H Calcium 10.7 H 10.6 H ALT 41 H Alkaline Phosphatase 157 H Total Protein 8.7 H Albumin 5.4 H Cholesterol 284.00 H LDL Cholesterol, Calc 206.3 H HDL Cholesterol 61.80 H Assessment and Plan Assessment: * Vertigo, probably due to acute labyrinthitis. * Right sphenoid sinusitis * Hyperlipidemia * Rheumatoid arthritis * X tobacco use Plan: * Patient has presented with acute vertigo, probably due to labyrinthitis. CT head showed evidence of right sphenoid sinusitis. Suggest a course of antibiotic, perhaps Augmentin 1 tablet twice a day for 7-10 days. * CTA of head showed no evidence of intracranial high-grade stenosis or intracranial aneurysm. * CTA of neck showed no evidence of dissection of the cervical internal carotid arteries or vertebral arteries or any evidence of significant stenosis at the carotid bifurcations. Left thyroid nodule, to be evaluated by IM. * B12 460, folate 7.9. * Lipid panel with cholesterol 284, LDL 206, HDL 61 and triglycerides 79.3. Patient has significant hyperlipidemia. Patient to be started on Lipitor 20 mg daily. Recommend healthy lifestyles. * Hemoglobin A1c 5.9. * Start aspirin 81 mg daily, if no medical contraindications. May take aspirin every other day. * 2-D echo pending. * Patient's vertigo has resolved. Neurologically clear, if echo comes back teofilo holm. * Thank you for the consult.
[2022-04-08] MEDS: HEPARIN SODIUM,PORCINE/PF 5,000 UNIT/0.5 ML SYRINGE SQ SCH (20:59)
[2022-04-08] MEDS: FAMOTIDINE 20 MG/2 ML VIAL IV SCH (21:00)
[2022-04-08] MEDS ORDERED: ATORVASTATIN 20 MG TAB PO SCH (21:00)
[2022-04-08] MEDS ORDERED: MECLIZINE 25 MG TAB PO PRN (21:24)
[2022-04-08] MEDS ORDERED: MELATONIN 3 MG TABLET PO SCH (21:30)
[2022-04-08] MEDS: AMOXIC-POT CLAV 875-125MG 1 EACH TAB PO SCH (21:52)
[2022-04-09] MEDS ORDERED: PANTOPRAZOLE 40 MG TABLET PO SCH (07:30)
[2022-04-09] MEDS: FAMOTIDINE 20 MG/2 ML VIAL IV SCH (08:35)
[2022-04-09] MEDS: AMOXIC-POT CLAV 875-125MG 1 EACH TAB PO SCH (08:36)
[2022-04-09] MEDS: HEPARIN SODIUM,PORCINE/PF 5,000 UNIT/0.5 ML SYRINGE SQ SCH (08:37)
[2022-04-09 08:45] VITALS: RESP 16; TEMP 98
[2022-04-09] MEDS ORDERED: ASPIRIN 81 MG PO SCH (09:00)
[2022-04-09 09:41] LABS: Basophils % (A) 0.9 %; Eosinophils # (A) 0.05 X 10*3/uL (0.04-0.35); Eosinophils % (A) 0.4 %; HGB 14.4 g/dL (12.0-15.0); Immature Grans, Automated 0.5 %; Lymphocytes # (A) 2.55 X 10*3/uL (0.90-5.00); Lymphocytes % (A) 21.9 %; MCH 29.7 pg (27.0-32.0); MCV 92.8 fL (80.0-97.0); Mean Platelet Volume 11.5 fL (9.5-12.2); Monocytes # (A) 0.98 X 10*3/uL (0.20-1.00); Monocytes % (A) 8.4 %; NRBC Per 100 WBC 0 /100 WBCS (0.0-0.0); Neutrophils # (A) 7.92 X 10*3/uL (1.80-7.70); Neutrophils % (A) 67.9 %; Platelet Count 273 X 10*3/uL (140-440); RBC 4.85 X 10*6/uL (4.10-5.20); RDW 13.5 % (11.5-14.5); WBC 11.66 X 10*3/uL (4.50-10.00)
[2022-04-09 10:00] LABS: African American GFR (CKD) 118.1 (60.0-200.0); Anion Gap 12.8 mmol/L (10.00-18.00); BUN/Creat Ratio 19.5 Ratio (12.00-20.00); Blood Urea Nitrogen 11.7 mg/dL (9.0-27.0); Calcium 9.9 mg/dL (8.7-10.3); Carbon Dioxide 22.2 mmol/L (20.0-27.5); Non-African American GFR(CKD) 101.9 (60.0-200.0); Potassium 4.1 mmol/L (3.5-5.5)
--- NOTE | 2022-04-09 11:33 | PN ---
PROGRESS NOTE SUBJECTIVE: Christiane is a 56-year-old lady was admitted to hospital with symptoms of dizziness and vertigo, the symptoms have resolved. We ordered an echocardiogram on her that has not yet been done and that is delaying her discharge. At the time of my evaluation this morning, she appears comfortable at rest and is free of symptoms. OBJECTIVE: VITAL SIGNS: Stable. NECK: There is no jugular venous distention. CHEST: Reveals good air entry bilaterally. HEART: Reveals first and second heart sounds. No gallop. EXTREMITIES: Did not reveal any edema. Troponins are negative, potassium is 4.1, creatinine is 0.6, hemoglobin is 14.4. ASSESSMENT AND PLAN: Dizziness and vertigo, resolved. As soon as the echo is done, we should be able to discharge the patient home and hopefully it will be done expeditiously. KWAKU / GERDA: [id number] /
--- NOTE | 2022-04-09 12:16 | CA ---
Transthoracic Echo Report Name: Christiane Esqueda Age: 56 Gender: F : 1965 Exam Date: 04/09/2022 09:36 Exam Location: [facility] Ht (in): 64 Wt (lb): 135 Ordering Physician: Camille Kevni Attending/Referring Phys: [id number], Dorita Gas Engineer Robyn Sandhu RDCS Procedure CPT: Indications: LVF Cardiac Hx: Technical Quality: Fair Contrast 1: Total Dose (mL): Contrast 2: Total Dose (mL): MEASUREMENTS (Male / Female) Normal Values 2D ECHO LV Diastolic Diameter PLAX 3.8 cm 4.2 - 5.9 / 3.9 - 5.3 cm LV Systolic Diameter PLAX 2.0 cm IVS Diastolic Thickness 0.9 cm 0.6 - 1.0 / 0.6 - 0.9 cm LVPW Diastolic Thickness 1.2 cm 0.6 - 1.0 / 0.6 - 0.9 cm LV Relative Wall Thickness 0.5 RV Internal Dim ED PLAX 2.7 cm LA Volume 31.0 cm??? 18 - 58 / 22 - 52 cm??? M-MODE Aortic Root Diameter MM 2.9 cm LA Systolic Diameter MM 3.1 cm LA Ao Ratio MM 1.1 AV Cusp Separation MM 1.8 cm DOPPLER AV Peak Velocity 134.7 cm/s AV Peak Gradient 7.3 mmHg AV Mean Velocity 86.9 cm/s AV Mean Gradient 3.5 mmHg AV Velocity Time Integral 25.5 cm LVOT Peak Velocity 113.7 cm/s LVOT Peak Gradient 5.2 mmHg LVOT Velocity Time Integral 23.0 cm MV Area PHT 3.1 cm??? Mitral E Point Velocity 69.0 cm/s Mitral A Point Velocity 100.8 cm/s Mitral E to A Ratio 0.7 MV Deceleration Time 247.1 ms MV E' Velocity 6.5 cm/s Mitral E to MV E' Ratio 10.7 TR Peak Velocity 198.0 cm/s TR Peak Gradient 15.7 mmHg Right Ventricular Systolic Press 20.7 mmHg FINDINGS Left Ventricle Normal Left ventricular size, wall thickness, systolic function with no obvious regional wall motion abnormalities. Normal Left ventricular diastolic filling pattern. Left ventricular ejection fraction is estimated at 55-60 %. Right Ventricle Normal right ventricular size and function. Right ventricular systolic pressure within normal limits. Right Atrium Normal right atrial size. Left Atrium Normal left atrial size. No evidence for an atrial septal defect. Mitral Valve Structurally normal mitral valve. No mitral stenosis, regurgitation or prolapse. Aortic Valve Trileaflet aortic valve. No aortic valve stenosis or regurgitation. Tricuspid Valve Structurally normal tricuspid valve. Mild tricuspid regurgitation. Pulmonic Valve Trace pulmonic regurgitation. Pericardium No pericardial effusion. Aorta Normal size aortic root and proximal ascending aorta. CONCLUSIONS Normal LV systolic function Previewed by: Dr. Kojo Armstrong MD (Electronically Signed) Final Date: 09 April 2022 12:15
--- NOTE | 2022-04-09 13:04 | P.PN ---
Subjective Progress Note Date: 04/09/22 Patient was seen for a follow-up. Patient states her vertigo has resolved. He offers no complaints. Wants to go home. Telemetry monitoring showing sinus rhythm, sinus tachycardia in 130s with activity. Some PVCs, couplets and PACs. Objective - Vital Signs Vital signs: Vital Signs Temp 98.0 F 04/09/22 07:23 Pulse 70 04/09/22 07:23 Resp 16 04/09/22 07:23 BP 144/92 04/09/22 07:23 Pulse Ox 96 04/09/22 07:26 FiO2 21 04/09/22 07:26 Intake & Output 04/08/22 04/09/22 04/09/22 18:59 06:59 18:59 Intake Total 236 540 90 Balance 236 540 90 Intake: Oral 236 540 90 Other: Voiding Method Toilet # Voids 2 1 - Exam Patient's examination is essentially unchanged. - Labs CBC & Chem 7: 04/09/22 05:30 04/09/22 05:30 Labs: Abnormal Lab Results - Last 24 Hours (Table) 04/09/22 Range/Units 05:30 WBC 11.66 H (4.50-10.00) X 10*3/uL Immature Gran # 0.06 H (0.00-0.04) X 10*3/uL Neutrophils # 7.92 H (1.80-7.70) X 10*3/uL Assessment and Plan Assessment: * Vertigo, probably due to acute labyrinthitis. * Right sphenoid sinusitis * Hyperlipidemia * Rheumatoid arthritis * X tobacco use Plan: * Patient has presented with acute vertigo, probably due to labyrinthitis. CT head showed evidence of right sphenoid sinusitis. Suggest a course of antibiotic, perhaps Augmentin 1 tablet twice a day for 7-10 days. * CTA of head showed no evidence of intracranial high-grade stenosis or intracranial aneurysm. * CTA of neck showed no evidence of dissection of the cervical internal carotid arteries or vertebral arteries or any evidence of significant stenosis at the carotid bifurcations. Left thyroid nodule, to be evaluated by IM. * B12 460, folate 7.9. Borderline folate level, we will start folic acid 1 mg daily. * Lipid panel with cholesterol 284, LDL 206, HDL 61 and triglycerides 79.3. Pat ient has significant hyperlipidemia. Patient to be started on Lipitor 20 mg daily. Recommend healthy lifestyles. * Hemoglobin A1c 5.9. * Start aspirin 81 mg daily, if no medical contraindications. May take aspirin every other day. * 2-D echo revealed normal left ventricular systolic function with EF 55-60%. Normal left-ventricular size and wall thickness. Left atrial size is normal. * Patient's vertigo has resolved. Neurologically clear for discharge.
[2022-04-09] MEDS ORDERED: FOLIC ACID 1 MG TAB PO SCH (13:15)
[2022-04-09 14:21] VITALS: BP 148/84; PULSE 73
[2022-04-09] MEDS ORDERED: FAMOTIDINE 20 MG TAB PO SCH (21:00)
--- NOTE | 2022-04-09 21:04 | P.DS ---
Providers Date of admission: 04/07/22 19:49 Attending physician: Noah Ricci MD Consults: 04/07/22 19:49 Consult Physician Routine Consulting Provider: Cesario Farris Consult Reason/Comments: vertigo Do you want consulting provider notified?: Yes Consult Physician Urgent Consulting Provider: Felix Jean Consult Reason/Comments: cp Do you want consulting provider notified?: Yes Primary care physician: Chintan Clayton Hospital Course: Diagnoses: Chest pain, cardiac causes ruled out and cleared by manager diversity. Resolved Vertigo, secondary to acute labyrinthitis improved Left thyroid nodule, incidental finding. Asymptomatic History of rheumatoid arthritis History of osteoarthritis status post left hip arthroplasty Hospital course: This is a pleasant 56 years old female with past medical history of Rheumatoid Arthritis , s/p total L hip arthroplasty. Patient presents because she felt the room spinning 4 AM when she woke up yesterday associated with multiple vomiting episodes and difficulty eating or drinking because of this, currently she feels better and stating that her dizziness and vertigo resolved, she does not have the vomiting anymore. Also patient has some she's been evaluated by neurology and cardiology service, workup was unremarkable with negative CT of the brain and CT of the brain, with examination acute labyrinthitis is suspected and augmenting his recommended 7 day which was provided for the patient upon discharge. Also manager diversity evaluated the patient, echocardiogram showed ejection fraction of 55-60%. Cardiology cleared the patient for discharge with recommendation for stress test as an outpatient. Also aspirin 81 mg at the recommendation of neurologist, risks including but not with the risk of bleeding were explained for the patient as well as benefits and she is agreeable An incidental finding of left thyroid nodule was found on CAT scan, patient and at bedside and informed, TSH is normal at 1.1. Patient and recommended that patient follow up with PCP Dr. Clayton as well as referred to machine stripper Dr. Garcia/Dr. Laboy and patient has been decreased to do follow-up in 1-2 weeks and agree to call and make appointment ( staff tried to make appointment for the patient but referral from PCP is required, patient informed and she is agreeable) Patient was eager to go home today as she is back to her baseline, she denies any headache or other neurological symptoms, no chest pain or dyspnea. No other neuro symptoms. Patient was cleared for discharge by both cardiology and nephrology services. Patient denies any other new symptoms. Problems and management plan were discussed with the patient and he verbalized understanding and acceptance Patient was found stable and can be discharged home in guarded prognosis however he needs follow-up as an outpatient. Patient was instructed to follow up with PCP within one week and patient agrees Patient was instructed to follow up with Dr. Estrella as an outpatient and week, stress this is an outpatient and recommended for her and she is agreeable. Patient also instructed to follow up with neurologist and Dr. Kitchen suggested to call and make appointment in 1-2 weeks and she is agreeable. Patient also instructed to follow up with machine stripper Dr. Garcia/Dr. Mart for her thyroid nodule, contact information provided for the patient and she is agreeable with her : Make appointments in 1-2 weeks. Risks including but not limited to cancer are explained and patient is aware Physical exam Gen: patient is a AAOx3, no distress CVS: S1-S2, RRR, no murmur Lungs: B/L CTA, no wheezing Abdomen: soft, no distention, no tenderness, positive bowel sounds Extremity: no leg edema or induration Time spent more than 35 minutes Plan - Discharge Summary New Discharge Prescriptions: New Meclizine [Antivert] 25 mg PO TID PRN #20 tab PRN Reason: Vertigo Aspirin 81 mg PO DAILY #30 tab Atorvastatin [Lipitor] 20 mg PO HS #30 tab Amoxic-Pot Clav 875-125Mg [Augmentin 875-125] 1 each PO Q12HR 7 Days #14 tab Discontinued Ibuprofen [Motrin] 800 mg PO Q8H PRN PRN Reason: Pain Discharge Medication List Amoxic-Pot Clav 875-125Mg [Augmentin 875-125] 1 each PO Q12HR 7 Days #14 tab 04/09/22 [Rx] Aspirin 81 mg PO DAILY #30 tab 04/09/22 [Rx] Atorvastatin [Lipitor] 20 mg PO HS #30 tab 04/09/22 [Rx] Meclizine [Antivert] 25 mg PO TID PRN #20 tab 04/09/22 [Rx] Follow up Appointment(s)/Referral(s): Chintan Clayton MD [Primary Care Provider] - 1-2 days Rohan Joshua MD [REFERRING] - 1 Week (for thyoroid nodule Primary Care Doctor needs to refer patient .) Jessica Kitchen MD [Medical Doctor] - 1 Week (neurologist ) Susan Garcia MD [STAFF PHYSICIAN] - 1 Week (for thyoroid nodule Office is closed . Left message for office to call the patient and schedule an appointment.) Kojo Armstrong MD [STAFF PHYSICIAN] - 04/16/22 4:15 pm (manager diversity , we recommend stress test as outpatint ) Patient Instructions/Handouts: Amoxicillin/Clavulanate Potassium (By mouth), Labyrinthitis (GEN), Vertigo (DC) Activity/Diet/Wound Care/Special Instructions: heart healthy diet , low-fat diet activity is restricted till you see your doctor Discharge Disposition: HOME SELF-CARE
== END 2022-04-09 16:12 | disposition home or self-care (01) ==
LOC: EC 14:49 → 6NMEDSUR 19:49
PROVIDERS: ADMIT Internal Medicine; ATTEND Internal Medicine
DX: R07.89 Other chest pain (principal); H83.09 Labyrinthitis, unspecified ear; M06.9 Rheumatoid arthritis, unspecified; E04.1 Nontoxic single thyroid nodule; K59.00 Constipation, unspecified; D72.829 Elevated white blood cell count, unspecified; E78.5 Hyperlipidemia, unspecified; I07.1 Rheumatic tricuspid insufficiency; I37.1 Nonrheumatic pulmonary valve insufficiency; J01.30 Acute sphenoidal sinusitis, unspecified; I49.3 Ventricular premature depolarization; Z79.899 Other long term (current) drug therapy; Z96.642 Presence of left artificial hip joint; Z98.51 Tubal ligation status; Z87.891 Personal history of nicotine dependence
CPT/HCPCS: 96376; 96361 ×3; 96374; 96375; 99285; 36415; 94760 ×2; 93005; 93306; 80061; 80053; 80048 ×2; 84443; 82607; 82746; 83735; 84484; 85025 ×2; 85610; 85730; 83036; 71046; 70496; 70450; 70498; G0378 ×3; J2765; J3360; Q9967

== ENCOUNTER → 2023-05-10 | Outpatient (CLI) | payer BC ==
--- NOTE | 2023-05-10 15:31 | MM ---
Reason for Exam: Screening (asymptomatic). Last screening mammogram was performed 12 month(s) ago. Patient History: Menarche at age 16. First Full-Term at age 25. Postmenopausal. Patient used Hormonal Contraceptives for 5 years. 1986, Cyst Aspiration on the Right side. Excisional Biopsy on the Right side. Maternal cousin had breast cancer, age 51. Risk Values: Sejal 5 year model risk: 1.5%. NCI Lifetime model risk: 9.3%. Prior Study Comparison: 03/03/2019 Bilateral Diagnostic Mammogram, [facility]. 05/07/2020 Bilateral Screening Mammogram, [facility]. 05/08/2022 Bilateral MG screening mammo w CAD, [facility]. Tissue Density: The breast tissue is extremely dense which could obscure a lesion on mammography. Findings: Analyzed By CAD. The pattern is symmetrical. Pattern is stable. Benign calcifications within the left breast. No significant interval changes are evident. No suspicious groups of microcalcifications, spiculated or lobular masses, architectural distortion or other secondary signs of malignancy are mammographically apparent. Overall Assessment: Benign, BI-RAD 2 Management: Screening Mammogram of both breasts in 1 year. A negative mammogram report should not preclude additional follow up of suspicious palpable abnormalities. Patient should continue monthly self breast exam. A clinical breast exam by your physician is recommended on an annual basis and results should be correlated with mammographic findings. Electronically signed and approved by: Sanket Marcos D.O. Radiologis
== END | disposition home or self-care (01) ==
LOC: RADMAMWWP 08:43
PROVIDERS: ATTEND Family Medicine
DX: Z12.31 Encounter for screening mammogram for malignant neoplasm of breast (principal); Z80.3 Family history of malignant neoplasm of breast; Z78.0 Asymptomatic menopausal state
CPT/HCPCS: 77067

== ENCOUNTER → 2024-05-11 | Outpatient (CLI) | payer BC ==
--- NOTE | 2024-05-11 10:28 | MM ---
Reason for Exam: Screening (asymptomatic). Last screening mammogram was performed 12 month(s) ago. Patient History: Menarche at age 16. First Full-Term at age 25. Postmenopausal. Patient used Hormonal Contraceptives for 5 years. 1985, Cyst Aspiration on the Right side. Excisional Biopsy on the Right side. Maternal cousin had breast cancer, age 51. Risk Values: Sejal 5 year model risk: 1.6%. NCI Lifetime model risk: 9.1%. Prior Study Comparison: 05/07/2020 Bilateral Screening Mammogram, [facility]. 05/08/2022 Bilateral MG screening mammo w CAD, [facility]. 05/10/2023 Bilateral MG screening mammo w CAD, [facility]. Tissue Density: The breasts are heterogeneously dense, which may obscure small masses. Findings: Analyzed By CAD. Right breast: There is no suspicious group of microcalcifications or new suspicious mass. Left breast: There is no suspicious group of microcalcifications or new suspicious mass. Overall Assessment: Negative, BI-RAD 1 Management: Screening Mammogram of both breasts in [address] [facility] will attempt to contact patient to return for supplemental views and ultrasound if indicated. Patient should continue monthly self-breast exams. A clinical breast exam by your physician is recommended on an annual basis. This exam should not preclude additional follow-up of suspicious palpable abnormalities. Note on Sejal scores and lifetime risk: 1. A Sejal score greater than 3% is considered moderate risk. If this is the case, consider specialist referral to assess eligibility for a risk reducing agent. 2. If overall lifetime risk for the development of breast cancer is 20% or higher, the patient may qualify for future screening with alternating mammogram and breast MRI. [facility], , 05/11/2024 10:25 AM. Electronically signed and approved by: Rafita Sharma DO
== END | disposition home or self-care (01) ==
LOC: RADMAMWWP 09:13
PROVIDERS: ATTEND Family Medicine
DX: Z12.31 Encounter for screening mammogram for malignant neoplasm of breast (principal); R92.333 Mammographic heterogeneous density, bilateral breasts; Z78.0 Asymptomatic menopausal state; Z80.3 Family history of malignant neoplasm of breast; Z92.0 Personal history of contraception
CPT/HCPCS: 77063; 77067